=== PATIENT | female | born 1965 | race Caucasian/White ===

== ENCOUNTER → 2016-09-28 | Day surgery (SDC) | payer BC ==
[~2016-09-28] MED LIST: ALPRAZolam 0.25 MG TAB ONE; LIDOCAINE 1% INJ 10MG/ML (20 ML MDV) ONE; SODIUM BICARB 4% 5 ML VIAL (0.48 MEQ/ML) ONE
--- NOTE | 2016-09-28 11:24 | USB ---
Ultrasound-guided breast cyst aspiration HISTORY: Breast cyst The skin overlying the patient's breast cyst was localized on the right and subsequently prepped and draped. Lidocaine used for local anesthesia. 18-gauge needle was advanced into the cyst and approximately 2 cc of dark fluid were aspirated and sent for laboratory analysis. Following the procedure hemostasis achieved. No immediate complication. Patient remained in stable condition without complication. IMPRESSION: Status post breast cyst aspiration at the 6:00 position periareolar level. This procedure performed by the undersigned. Pathology Results: Benign BREAST, RIGHT, ASPIRATE: SCANTY DEGENERATED CELLULAR MATERIAL; NON-DIAGNOSTIC. Recommendation Follow up ultrasound of the right breast in 6 months. GISSEL
== END ==
LOC: RADUSWWP 09:45
PROVIDERS: ATTEND Surgery
DX: N60.01 Solitary cyst of right breast (principal); N63 Unspecified lump in breast
CPT/HCPCS: 88108; 88305; 76942; 19000; J2001

== ENCOUNTER → 2020-10-09 | Outpatient (CLI) | payer BC ==
[2020-10-09 08:49] VITALS: BP 129/80; PULSE 70; RESP 18; TEMP 98.2
--- NOTE | 2020-10-09 09:53 | P.GSHP ---
History of Present Illness H&P Date: 10/09/20 Chief Complaint: Microcalcifications of concern left breast Trisha is a 55-year-old white female who presents for evaluation secondary to mammographic abnormality in the left breast. She has seen in consultation for Dr. David Chu. On she underwent a bilateral 3-D screening mammogram. This revealed chronic nodularity in the right breast. Additionally she was noted to have an asymmetric density superior left breast. Some small grouped calcifications superior posterior left breast had increased. She then underwent a diagnostic left breast mammogram on . This revealed a cluster of calcifications in the outer left breast on craniocaudal projection. Biopsy was recommended. Suspicious persistent nodularity was not identified. If the calcification biopsy was negative short-term follow-up of the density was suggested. The right breast had no new changes. The patient does not feel any lumps masses or nodules in either breast. No nipple discharge or skin changes of concern. She has not had any recent trauma or infection in her breast. Caffeine: daily ? amount nicotine: none chocolate: small amount daily Family history: none Hormonal history: Menarche: 15 , breast fed: yes, age at first :32 menopause: still has intermittent periods, started having hot flashes about 6 months ago hormones: none BCP: 3 years Surgical history: Medical history: none Social History: nicotine: none alcohol: none drugs: none - Constitutional Constitutional: Denies chills, Denies fever - EENT Comment: wears glasses Eyes: denies blurred vision, denies pain Ears: deny: decreased hearing, tinnitus Ears, nose, mouth and throat: Denies headache, Denies sore throat - Breasts Breasts: bilateral: as per HPI - Cardiovascular Cardiovascular: Denies chest pain, Denies shortness of breath - Respiratory Respiratory: Denies cough, Denies 7 - Gastrointestinal Gastrointestinal: Denies abdominal pain, Denies diarrhea, Denies nausea, Denies vomiting - Genitourinary (Female) Genitourinary: Denies dysuria, Denies hematuria - Menstruation Menstruation: Reports cycle variable - Musculoskeletal Musculoskeletal: Denies myalgias - Integumentary Integumentary: Denies pruritus, Denies rash - Neurological Neurological: Denies numbness, Denies weakness - Psychiatric Psychiatric: Denies anxiety, Denies depression - Endocrine Endocrine: Denies fatigue, Denies weight change - Hematologic/Lymphatic Comment: none - Allergic/Immunologic Allergic/Immunologic: Reports seasonal allergies Past Medical History History of Any Multi-Drug Resistant Organisms: None Reported Smoking Status: Never smoker Medications and Allergies Home Medications Medication Instructions Recorded Confirmed Type No Known Home Medications 10/09/20 10/09/20 History Allergies Allergy/AdvReac Type Severity Reaction Status Date / Time No Known Allergies Allergy Unverified 10/09/20 08:45 Surgical - Exam Vital Signs Temp Pulse Resp BP Pulse Ox 98.2 F 70 18 129/80 99 10/09/20 08:46 10/09/20 08:46 10/09/20 08:46 10/09/20 08:46 10/09/20 08:46 BMI 20.2 - General well developed, well nourished, no distress - Eyes normal ocular movement - ENT no hearing loss, no congestion - Neck no masses, trachea midline - Respiratory normal respiratory effort, clear to auscultation - Cardiovascular Rhythm: regular Heart Sounds: normal: S1, S2 - Abdomen Abdomen: soft - Integumentary normal turgor - Neurologic no disoriented, no combative - Musculoskeletal normal gait, normal posture - Psychiatric oriented to time, oriented to person, oriented to place, speech is normal, memory intact breast exam: BRA: 32B inspection: Bilateral grade 2 ptosis Palpation: Right breast: Multi-positional exam dense fibroglandular tissue no dominant masses or nodules of concern, fibrocystic changes Right axilla: No adenopathy of concern Left breast: Multi-positional exam dense fibroglandular tissue no dominant masses or nodules of concern, fibrocystic changes Left axilla: No adenopathy of concern Results Mammogram results reviewed, left breast mammogram reviewed with radiologist and area of concern does appear to be amiable to stereotactic core biopsy Assessment and Plan Assessment: Impression: 1. Perimenopausal 2. Radiographic increased microcalcifications left breast outer quadrant area 3. Dense fibroglandular/fibrocystic breast tissue bilaterally 4. Questionable nodular density left breast not demonstrated on diagnostic left breast mammogram Plan: 1. Stereotactic core biopsy left breast 2. Have discussed with the patient the breast changes may be related to the fact that she is perimenopausal and these may be related to fluctuations in hormones 3. Consider decrease caffeine intake Cc: Dr. Chu Risks and benefits of stereotactic core biopsy were discussed with the patient. Risks include but are not limited to bleeding, infection, reaction to the anesthetic. For this patient secondary to the size of her breast 32B and the fact that the lesion is somewhat posterior there may be some difficulty in identifying the lesion stereotactically. It does appear that this is possible after review with radiology and this would be recommended attempt. The patient has a undiagnosed new problem with uncertain prognosis/mammographic abnormality left breast The patient's external mammogram was reviewed independently with the radiologist to determine if this would be amiable to stereo biopsy The procedure stereo biopsy is confirmed discussed with the patient and scheduled
== END ==
LOC: WWCWWP 08:29
PROVIDERS: ATTEND Surgery
DX: N60.12 Diffuse cystic mastopathy of left breast (principal); N60.11 Diffuse cystic mastopathy of right breast; R92.0 Mammographic microcalcification found on diagnostic imaging of breast; Z78.0 Asymptomatic menopausal state

== ENCOUNTER → 2020-10-30 | Day surgery (SDC) | payer BC ==
[2020-10-30 07:15] VITALS: RESP 16
[2020-10-30 08:49] VITALS: BP 119/70; PULSE 69; TEMP 98.3
--- NOTE | 2020-10-30 09:43 | P.PCN ---
Date of Procedure: 10/30/20 Preoperative Diagnosis: Microcalcifications of concern left breast upper outer quadrant Postoperative Diagnosis: Same Procedure(s) Performed: Stereotactic core biopsy left breast microcalcifications upper outer quadrant Anesthesia: local Surgeon: Lisseth Lawson Pathology: other (breast tissue with microcalcifications) Condition: stable Disposition: same day Indications for Procedure: Microcalcifications of concern left breast upper outer quadrant Finding since prior mammogram Operative Findings: Biopsy specimen with microcalcifications of concern Description of Procedure: Trisha is a 55-year-old white female who underwent a diagnostic left breast mammogram on 2120. Microcalcifications of concern were noted in the left breast in the upper outer quadrant region. Stereotactic core biopsy was recommended. Risk and benefits of the procedure were discussed with the patient. Alternatives were discussed but not recommended. The patient was taken to the stereotactic core biopsy wound. Was necessary to have her arm through the opening in the table in order to localize the lesion of concern. A lateral to medial approach was utilized. A ski guide film was obtained. The microcalcifications of concern were identified. The lesion was targeted. The breast was prepped using Betadine. 20 mL of 1% lidocaine was used to anesthetize the area of concern. A 9-gauge vacuum-assisted core rotating biopsy needle was driven to the correct coordinates. The needle was fired. Post fire film was obtained. The needle was noted to be in the correct location. 13 core samples were obtained. Radiograph of the specimen revealed the microcalci fications of concern to be present in the specimen. A Top-Hat secure logan clip was left in place. Radiograph was performed to assure that the clip was in the correct location, this was confirmed. The patient tolerated the procedure in stable condition. She will follow-up with Dr. Glasgow. The specimen was sent to pathology.
--- NOTE | 2020-10-30 14:30 | MM ---
EXAMINATION TYPE: MG stereo VAD BX LT DATE OF EXAM: 10/30/2020 COMPARISON: NONE CLINICAL HISTORY: Abnormal mammogram TECHNIQUE: Stereotactic guided core biopsy of left breast. FINDINGS: The shortness pathway for biopsy was chosen. Shortness pathway was mediolateral oblique approach. Radiology provided the targeted. Procedure was performed by surgery. Specimen: Single mammographic specimen is obtained and demonstrates calcifications within the specimen specimen. Post procedure mammogram ordered by the physician was obtained. Stereotactic core marker is in the region of the calcifications. IMPRESSION: 1. Successful stereotactic core biopsy left breast calcifications. Recommendations: 1. Recommendations are pending pathology results. Pathology Results: Benign LEFT BREAST, CORE BIOPSY: Hypocellular stromal fibrosis with sclerosing adenosis, focal microcalcification and fibrocystic change with apocrine metaplasia. Focal columnar cell change identified. Negative for in situ or invasive malignancy. Recommendation Follow up mammogram of the left breast in 6 months. GISSEL
== END ==
LOC: RADMAMWWP 07:04
PROVIDERS: ATTEND Surgery
DX: N60.32 Fibrosclerosis of left breast (principal); R92.0 Mammographic microcalcification found on diagnostic imaging of breast
CPT/HCPCS: 88305; 19081; A4648; J2001

== ENCOUNTER → 2020-11-13 | Outpatient (CLI) | payer BC ==
[2020-11-13 13:29] VITALS: BP 126/76; PULSE 75; RESP 14; TEMP 98
--- NOTE | 2020-11-13 13:33 | P.PN ---
Subjective Progress Note Date: 11/13/20 Principal diagnosis: Fibrocystic changes left breast Trisha is a 55-year-old white female status post left breast stereotactic core biopsy and 4121. Pathology was benign. In this was felt to be concordant. Postprocedure she is doing well without complaints. revealed hypocellular stromal fibrosis with sclerosing adenosis, focal microcalcification fibrocystic changes. It was negative for in situ or invasive malignancy. Objective - Vital Signs Vital signs: Vital Signs Temp 98.0 F 11/13/20 13:24 Pulse 75 11/13/20 13:24 Resp 14 11/13/20 13:24 BP 126/76 11/13/20 13:24 Pulse Ox 99 11/13/20 13:24 Intake & Output 11/12/20 11/13/20 11/13/20 18:59 06:59 18:59 Weight 60.328 kg - Exam BMI 20.8 - Constitutional General appearance: Present: average body habitus - EENT Eyes: Present: EOMI ENT: Present: hearing grossly normal - Neck Neck: Present: normal ROM - Respiratory Respiratory: bilateral: CTA - Cardiovascular Rhythm: regular Heart sounds: normal: S1, S2 - Integumentary Integumentary Comment(s): Biopsy site clean and dry no evidence of infection or hematoma Integumentary: Present: normal turgor Assessment and Plan Assessment: Impression: 1. Patient status post left breast stereotactic core biopsy pathology benign Plan: 1. Repeat left breast mammogram in 6 months with physician exam at that time CC: DR. David Chu
== END ==
LOC: WWCWWP 13:18
PROVIDERS: ATTEND Surgery
DX: N60.92 Unspecified benign mammary dysplasia of left breast (principal)

== ENCOUNTER → 2021-05-01 | Outpatient (CLI) | payer BC ==
--- NOTE | 2021-05-04 12:16 | MM ---
Reason for exam: follow-up at short interval from prior study. Last mammogram was performed 4 years and 9 months ago. History: Benign MG stereo VAD BX LT of the left breast, October 30, 2020. Benign US breast aspiration single RT of the right breast, September 28, 2016. Physical Findings: Nurse did not find any significant physical abnormalities on exam. MG Diagnostic Mammo LT w CAD CC, MLO, and XCCL view(s) were taken of the left breast. Prior study comparison: August 18, 2020, mammogram. July 19, 2016, mammogram, performed at [facility]. No significant new findings when compared with previous films. These results were verbally communicated with the patient and result sheet given to the patient on 05/01/21. ASSESSMENT: Benign, BI-RAD 2 RECOMMENDATION: Routine screening mammogram of both breasts in 6 months. Back on schedule.
== END | disposition home or self-care (01) ==
LOC: RADMAMWWP 14:49
PROVIDERS: ATTEND Surgery
DX: R92.8 Other abnormal and inconclusive findings on diagnostic imaging of breast (principal)
CPT/HCPCS: 77065